=== PATIENT | male | born 1985 ===

== ENCOUNTER 2021-02-12 10:08 | Emergency (ER) | payer OTHER, SELFPAY ==
[2021-02-12 10:16] VITALS: BP 123/82; PULSE 77; RESP 18; TEMP 36.7; O2SAT 98; BMI 24.4
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
== END 2021-02-12 10:51 | disposition home or self-care (01) ==
PROVIDERS: Emergency Provider Emergency Medicine; PCP Internal Medicine
DX: S19.9XXA Unspecified injury of neck, initial encounter (principal); M54.2 Cervicalgia; M25.512 Pain in left shoulder; V43.52XA Car driver injured in collision with other type car in traffic accident, initial encounter; Y93.9 Activity, unspecified; Y92.410 Unspecified street and highway as the place of occurrence of the external cause; Y99.9 Unspecified external cause status; Z79.899 Other long term (current) drug therapy
CPT/HCPCS: 99283

== ENCOUNTER 2021-03-14 14:00 | Outpatient (REF) | payer OTHER, SELFPAY ==
[2021-03-15 10:01] LABS: Influenza A PCR NEGATIVE (Negative); Influenza B PCR NEGATIVE (Negative); Resp Syncy Virus RNA Qual PCR NEGATIVE (Negative); SARS COV2 PCR INHOUSE NEGATIVE (Negative)
== END 2021-03-14 14:01 | disposition home or self-care (01) ==
LOC: HO.10HDLNP 14:00
PROVIDERS: Visit Provider Internal Medicine
DX: R50.9 Fever, unspecified (principal); R19.7 Diarrhea, unspecified; R61 Generalized hyperhidrosis; Z20.822 Contact with and (suspected) exposure to COVID-19
CPT/HCPCS: 0241U; 36415

== ENCOUNTER 2021-03-15 09:06 | Outpatient (REF) | payer OTHER, SELFPAY | END 2021-03-15 09:07 | disposition home or self-care (01) | LOC: HO.10HDL 09:06 | PROVIDERS: Visit Provider Internal Medicine | DX: Z13.89 Encounter for screening for other disorder (principal) | CPT/HCPCS: 0241U; 36415 ==

== ENCOUNTER 2021-07-23 10:38 | Outpatient (REF) | payer OTHER, SELFPAY ==
[2021-07-23 11:34] LABS: Influenza A PCR NEGATIVE (Negative); Influenza B PCR NEGATIVE (Negative); Resp Syncy Virus RNA Qual PCR NEGATIVE (Negative); SARS COV2 PCR INHOUSE POSITIVE (Negative)
== END 2021-07-23 10:39 | disposition home or self-care (01) ==
LOC: HO.LNP 10:38
PROVIDERS: Visit Provider Internal Medicine
DX: Z20.822 Contact with and (suspected) exposure to COVID-19 (principal); R51.9 Headache, unspecified; R09.81 Nasal congestion
CPT/HCPCS: 0241U

== ENCOUNTER 2021-08-22 11:19 | Outpatient (REF) | payer OTHER, SELFPAY ==
[2021-08-22 12:07] LABS: Influenza A PCR NEGATIVE (Negative); Influenza B PCR NEGATIVE (Negative); Resp Syncy Virus RNA Qual PCR NEGATIVE (Negative); SARS COV2 PCR INHOUSE POSITIVE (Negative)
== END 2021-08-22 11:20 | disposition home or self-care (01) ==
LOC: HO.LNP 11:19
PROVIDERS: Visit Provider Internal Medicine
DX: Z20.822 Contact with and (suspected) exposure to COVID-19 (principal)
CPT/HCPCS: 0241U

== ENCOUNTER 2023-02-04 16:34 | Outpatient (REF) | payer OTHER, SELFPAY ==
[2023-02-04 16:49] LABS: MANUAL DIFF FLAG NO
[2023-02-04 17:32] LABS: Basophils Absolute Auto 0.1 X10*3/uL (0.0-0.2); Basophils Percent Auto 1.1 % (0-2); Eosinophils Absolute Auto 0.1 X10*3/uL (0.0-0.4); Eosinophils Percent Auto 1.2 % (0-4); Hematocrit 46.4 % (42.0-52.0); Imm Gran Abs Auto 0.06 X10*3/uL (0.00-0.03); Imm Gran Pct Auto 0.7 % (0.0-0.4); Lymphocytes Absolute Auto 2.8 X10*3/uL (1.2-4.9); Lymphocytes Percent Auto 33.5 % (20-40); Mean Corpuscular HGB Conc 34.5 g/dl (31.0-36.0); Mean Corpuscular Hemoglobin 31.5 pg (27.0-33.0); Mean Corpuscular Volume 91.3 fL (80.0-98.0); Monocytes Absolute Auto 0.6 X10*3/uL (0.1-1.2); Monocytes Percent Auto 6.8 % (2-11); Neutrophils Absolute Auto 4.8 x10*3/uL (2.0-8.3); Neutrophils Percent Auto 56.7 % (45-73); Platelet Count 294 X10*3/uL (160-400); Red Blood Count 5.08 X10*6/uL (4.60-5.80); White Blood Count 8.4 X10*3/uL (4.8-10.8)
[2023-02-04 17:41] LABS: Appearance Urine Turbid; Color Urine Yellow; Glucose Urine UA Negative (Negative); Leukocyte Esterase Urine Negative (Negative); Nitrite Urine Negative (Negative); Specific Gravity - Urine 1.025 (1.005-1.025); Urine Blood Negative (Negative); Urine Ketones Negative (Negative); Urine Protein Negative (Neg-Trace)
[2023-02-04 18:05] LABS: Alanine Aminotransferase 29 U/L (0-40); Albumin Level 4.4 g/dL (3.5-5.0); Alkaline Phosphatase 81 U/L (39-117); Anion Gap 13 (12-20); Aspartate Amino Transferase 23 U/L (5-37); Bilirubin Total 0.5 mg/dL (0.0-1.0); Blood Urea Nitrogen 13 mg/dL (9-16); C Reactive Protein 0.24 mg/dL (< or = 0.50); Calcium 9.4 mg/dL (8.4-10.2); Carbon Dioxide 28 mmol/L (22-29); Chloride 104 mmol/L (96-108); Estimated Glomerular Filt Rate > 60; Glucose Random 81 mg/dL (60-115); Lipase 36 U/L (8-78); Potassium 4.9 mmol/L (3.3-5.1); Sodium 140 mmol/L (135-145); Total Protein 7.5 g/dL (6.5-8.0)
[2023-02-04 18:21] LABS: Thyroid Stimulating Hormone 2.07 uIU/mL (0.32-4.0)
== END 2023-02-04 16:35 | disposition home or self-care (01) ==
LOC: HO.LAB 16:34
PROVIDERS: PCP Internal Medicine; Visit Provider Internal Medicine
DX: R10.9 Unspecified abdominal pain (principal); R63.5 Abnormal weight gain; E11.9 Type 2 diabetes mellitus without complications
CPT/HCPCS: 36415; 80053; 81003; 83690; 84443; 85025; 86140

== ENCOUNTER 2023-05-19 08:22 | Emergency (ER) | payer OTHER, SELFPAY ==
[2023-05-19 08:27] VITALS: BP 141/94; PULSE 75; RESP 16; TEMP 36.8; O2SAT 96; BMI 27.0
--- NOTE | 2023-05-19 08:58 | ED.BACK ---
HPI - Back Pain/Injury General Chief Complaint: Back Pain/Injury Stated Complaint: lower back pain Time Seen by Provider: 05/19/23 08:46 Source: patient, RN notes reviewed and old records reviewed Mode of arrival: ambulatory History of Present Illness HPI Narrative: 37-year-old male with no significant past medical history presenting to the ED complaining of bilateral low back pain x2 days s/p golfing. Patient reports heavy lifting/strenuous activities at work, and may have tweaked while playing golf, denies direct injury/trauma or fall, radiation down lower extremities, numbness, tingling, urinary incontinence/retention, hematuria/dysuria MD elicited complaint: back pain Related Data Previous Rx's Medication Instructions Recorded acetaminophen 500 mg tablet 500 mg PO Q6H PRN pain or fever 02/12/21 (Tylenol Extra Strength) #20 tabs cyclobenzaprine 5 mg tablet 5 mg PO Q8H PRN pain (scale score 02/12/21 7-10) 5 days #14 tabs lidocaine 5 % topical patch 1 patch topical DAILY PRN pain #30 02/12/21 (Lidoderm) ea naproxen 500 mg tablet 500 mg PO BID PRN pain 10 days #20 02/12/21 tabs acetaminophen 500 mg tablet 500 mg PO Q6H PRN fever or pain 05/19/23 (Tylenol Extra Strength) #14 tabs cyclobenzaprine 5 mg tablet 5 mg PO Q8H PRN pain (scale score 05/19/23 7-10) 5 days #14 tabs lidocaine 5 % topical patch 1 patch topical DAILY PRN pain #30 05/19/23 (Lidoderm) ea naproxen 500 mg tablet 500 mg PO BID PRN pain 10 days #20 05/19/23 tabs Allergies Allergy/AdvReac Type Severity Reaction Status Date / Time shrimp Allergy Unknown EAR PAIN, Verified 05/19/23 08:29 WATERY EYES, DIFFICULTY BREATHING, SWELLING Review of Systems Review of Systems: Constitutional: No Fever, No Chills ENT/Mouth: No Ear Pain, No sore throat, No Rhinorrhea, No Swallowing Difficulty Cardiovascular: No Chest Pain, No SOB Respiratory: No Cough Gastrointestinal: No Nausea, No Vomiting, No Diarrhea, No Constipation, No Abdominal pain Genitourinary: No Dysuria, No Urinary Frequency, No Hematuria, No Urinary Incontinence/retention, No Flank Pain Musculoskeletal: + joint pain, No Myalgias, No Joint Swelling Skin: No Skin Lesions, No rash Neuro: No Weakness, No Numbness, No Paresthesias Yes all other systems are reviewed and are negative Constitutional: Constitutional: Reports as per [facility] Past Medical History Attestation statement: The following information was validated with the patient. Source: old records reviewed Medical History No known health problems Physical Exam Vital Signs: Vital Signs: Last Vital Signs Temp 98.2 F 05/19/23 08:27 Pulse 75 05/19/23 08:27 Resp 16 05/19/23 08:27 BP 141/94 H 05/19/23 08:27 Pulse Ox 96 05/19/23 08:27 O2 Del Method Room Air 05/19/23 08:27 BMI result Body Mass Index 27.0 Const: General: cooperative, healthy appearing and no acute distress Orientation/consciousness: patient oriented x3 Limitations: no limitations HEENT: Head: Yes normal to inspection and Yes atraumatic Ears: hearing grossly normal bilaterally General nose exam: Normal external nose present Face and sinus: Yes normal facial exam Eyes: General: appearance normal, both eyes and all related structures EOM: EOMs intact bilaterally Neck: Neck: Yes normal visual inspection and Yes no meningeal signs Resp: Effort & Inspection: normal respiratory effort and no respiratory distress Cardio: Rate: regular rate GI: Inspection: Yes normal to inspection Palpation (GI): Soft to palpation, nontender, no guarding and not rigid : General: Yes no CVA tenderness Back/Spine/Pelvis: Other: No midline cervical/thoracic/lumbar spinous tenderness/step-off or deformity. + lower lumbar MSK spasming noted with bilateral paraspinal tenderness, no erythema/rash or ecchymosis. Back: no CVA tenderness Skin: Rashes: no rashes Wounds: no wounds Neuro: Other: Strength intact throughout. No saddle anesthesia. Sensation intact to light touch. Neurovascular intact distally General: patient oriented x3, gait normal, tone normal, moves all extremities, no meningeal signs and no focal motor deficits Gait exam (Neuro): Normal gait present Motor exam (neuro): 5/5 motor strength present throughout Extrem: General: Yes normal to inspection Medical Decision Making Medical Decision Making MDM Narrative: 37-year-old male with no significant past medical history presenting to the ED complaining of bilateral low back pain x2 days s/p golfing. On exam vital signs stable, NAD, nontoxic appearing, no midline spinous tenderness throughout or red flag symptoms, ambulating with steady, abdomen soft/nontender, no CVAT. Concern for MSK spasming/strain. Low suspicion for fracture, cauda equina/cord compression, epidural abscess, renal stone/pyelo or intra-abdominal pathology Plan: Pain control, PCP follow-up Results discussed with patient including worrisome signs and symptoms and strict return precautions, and when to return to the emergency department. They verbalized understanding and feel safe for discharge at this time. Differential Diagnosis Differential Diagnoses: The differential diagnosis associated with the presentation includes As above Admission/Observation Consideration of admission/observation: Escalation of care including admission/observation considered External Record Review External record reviewed: Inpatient record, Office record, Outpatient record, Prior outpatient labs, Prior outpatient radiology, Primary care record and Outside ED record Tests considered The following testing was considered but not selected: As above Discharge Plan Discharge Clinical Impression: Strain of lumbar region Patient Disposition: Home, Self-Care Instructions: Acute Low Back Pain (ED) Additional Instructions: Your pain is likely musculoskeletal Flexeril is a muscle relaxer, take at night as it makes you drowsy, do not drive, drink alcohol, or operate machinery while taking it Naproxen as an anti-inflammatory / pain medication, take with food Lidoderm patches are numbing patches, apply to painful area In addition take Tylenol at home If symptoms persist or worsen, pain becomes unbearable, you developed urinary retention or incontinence, or weakness return to the ED Prescriptions: New acetaminophen [Tylenol Extra Strength] 500 mg tablet 500 mg PO Q6H PRN (Reason: fever or pain) Qty: 14 0RF lidocaine [Lidoderm] 5 % adhesive patch,medicated 1 patch topical DAILY MDD remove after 12 hours PRN (Reason: pain) Qty: 30 0RF Rx Instructions: leave on most painful area for up to 12 hrs naproxen 500 mg tablet 500 mg PO BID PRN (Reason: pain) 10 Days Qty: 20 0RF cyclobenzaprine 5 mg tablet 5 mg PO Q8H PRN (Reason: pain (scale score 7-10)) 5 Days Qty: 14 0RF No Action acetaminophen [Tylenol Extra Strength] 500 mg tablet 500 mg PO Q6H PRN (Reason: pain or fever) Qty: 20 0RF lidocaine [Lidoderm] 5 % adhesive patch,medicated 1 patch topical DAILY MDD remove after 12 hours PRN (Reason: pain) Qty: 30 0RF Rx Instructions: leave on most painful area for up to 12 hrs naproxen 500 mg tablet 500 mg PO BID PRN (Reason: pain) 10 Days Qty: 20 0RF cyclobenzaprine 5 mg tablet 5 mg PO Q8H PRN (Reason: pain (scale score 7-10)) 5 Days Qty: 14 0RF Referrals: Tony López MD [Primary Care Provider] - Stand Alone Forms: Work/School Release
[2023-05-19] MEDS: Lidocaine 4 % Patch ADH..PATCH 1 PATCH TRANSDERMA (09:28)
[2023-05-19] MEDS: Ketorolac Tromethamine 30 MG/ML VIAL IM (09:29)
== END 2023-05-19 09:31 | disposition home or self-care (01) ==
PROVIDERS: Emergency Provider Emergency Medicine; PCP Internal Medicine
DX: M54.50 Low back pain, unspecified (principal); Z79.899 Other long term (current) drug therapy
CPT/HCPCS: 96372; 99284; J1885

== ENCOUNTER → 2024-05-30 10:48 | Outpatient (BNVA) | payer SELFPAY | PROVIDERS: PCP Internal Medicine; Visit Provider Physician Assistant Medical | DX: Z02.1 Encounter for pre-employment examination (principal) ==

== ENCOUNTER 2024-06-09 03:29 | Emergency (ER) | payer OTHER, SELFPAY ==
[2024-06-09 03:55] VITALS: BP 133/86; PULSE 89; RESP 18; TEMP 36.6; O2SAT 98; BMI 26.8
[2024-06-09] MEDS: Ibuprofen 600 MG TABLET PO (04:02)
--- NOTE | 2024-06-09 08:51 | ED.BACK ---
HPI - Back Pain/Injury General Chief Complaint: Extremity Problem Stated Complaint: lower back spasms Time Seen by Provider: 06/09/24 08:05 Source: patient Mode of arrival: ambulatory Limitations: no limitations History of Present Illness ED Provider: PIPO LOPEZ Narrative: 38 yo male with no sig PMH not on thinners no IVDA here with c/o lower back pain after heavy lifting at work hx of same in past. He denies numbness, weakness, saddle anesthesia. He tried motrin but went into spasms this AM and couldn't work. elicited complaint: back pain and back injury Pertinent past history: prior back pain Onset (ago): day(s) (yesterday) Timing: constant Severity: moderate Similar Symptoms Previously: Yes Quality: throbbing Location: lumbar spine Radiation: none Exacerbating factors: movement Relieving factors: none Context: while lifting Associated symptoms: denies other symptoms Treatments prior to arrival: NSAIDS Work related injury: Yes Related Data Previous Rx's ?Medication ?Instructions ?Recorded acetaminophen 500 mg tablet 500 mg PO Q6H PRN pain or fever 02/12/21 (Tylenol Extra Strength) #20 tabs cyclobenzaprine 5 mg tablet 5 mg PO Q8H PRN pain (scale score 02/12/21 7-10) 5 days #14 tabs lidocaine 5 % topical patch 1 patch topical DAILY PRN pain #30 02/12/21 (Lidoderm) ea naproxen 500 mg tablet 500 mg PO BID PRN pain 10 days #20 02/12/21 tabs acetaminophen 500 mg tablet 500 mg PO Q6H PRN fever or pain 05/19/23 (Tylenol Extra Strength) #14 tabs cyclobenzaprine 5 mg tablet 5 mg PO Q8H PRN pain (scale score 05/19/23 7-10) 5 days #14 tabs lidocaine 5 % topical patch 1 patch topical DAILY PRN pain #30 05/19/23 (Lidoderm) ea naproxen 500 mg tablet 500 mg PO BID PRN pain 10 days #20 05/19/23 tabs cyclobenzaprine 10 mg tablet 10 mg PO TID PRN muscle spasm #20 06/09/24 tabs lidocaine 5 % topical patch 1 patch topical DAILY #30 ea 06/09/24 Allergies Allergy/AdvReac Type Severity Reaction Status Date / Time shrimp Allergy Unknown EAR PAIN, Verified 06/09/24 03:58 WATERY EYES, DIFFICULTY BREATHING, SWELLING Review of Systems Review of Systems: Constitutional : No Weight loss, No Fever, No Chills, ENT/Mouth : No Hearing loss, No Ear Pain, No Nasal Congestion, No Sinus Pain, No Hoarseness, No sore throat, No Rhinorrhea, No Swallowing Difficulty Cardiovascular : No Chest Pain, No SOB Respiratory : No Cough, No Dyspnea Gastrointestinal : No Nausea, No Vomiting, No Diarrhea, No abdominal Pain, No Hematochezia, No Melena Genitourinary : No Dysuria, No Urinary Frequency, No Hematuria, No Urinary Incontinence, Musculoskeletal : positive back pain Skin : No Skin Lesions, No rash Neuro : No Weakness, No Numbness, No Paresthesias, no loss of bowel or bladder incontinence, no saddle anesthesia all other systems reviewed and are negative [facility] Past Medical History Attestation statement: The following information was validated with the patient. Source: old records reviewed Medical History No known health problems Social History Social History (Updated 06/09/24 @ 08:55 by Breann Anderson DO) Patient Tobacco Use Status: Never used Tobacco Physical Exam Vital Signs: Vital Signs: Last Vital Signs Temp 97.8 F 06/09/24 03:55 Pulse 89 06/09/24 03:55 Resp 18 06/09/24 03:55 BP 133/86 06/09/24 03:55 Pulse Ox 98 06/09/24 03:55 O2 Del Method Room Air 06/09/24 03:55 BMI result Body Mass Index 26.8 Appearance: Alert. Oriented X3. No acute distress. Eyes: Pupils equal, round and reactive to light. ENT: Pharynx normal. Neck: Normal inspection. Neck supple. CVS: Normal heart rate and rhythm. Pulses normal. Respiratory: No respiratory distress. Breath sounds normal. Abdomen: Soft and nontender. Back: ttp along lower lumbar bilateral paraspinal Skin: Skin warm and dry. Normal skin color. Normal skin turgor. Extremities: No lower extremity edema. No calf ttp Neuro: Oriented X 3. No motor deficit. No sensory deficit. L5 5/5 bilaterally SILT intact Medications Administered Discontinued Medications Generic Name Dose Route Start Last Admin Trade Name Freq PRN Reason Stop Dose Admin Ibuprofen 600 mg 06/09/24 03:59 06/09/24 04:02 Ibuprofen 600 Mg Tablet PO 06/09/24 04:00 600 mg ONCE ONE Administration Medical Decision Making Medical Decision Making MDM Narrative: 38 yo male with no sig PMH here with low back pain not on thinners no IVDA - work related due to lifting no red flags normal neuro exam at this time will need NSAIDs and muscle relaxers. Not toxic appearing Differential Diagnosis Differential Diagnoses: The differential diagnosis associated with the presentation includes strain, spasm External Record Review External record reviewed: Inpatient record Prescription Management I considered prescription management with: Pain Medication and Other Discharge Plan Discharge Clinical Impression: Muscle spasm of back Patient Disposition: Home, Self-Care Instructions: Muscle Spasm (ED), Back Pain (ED) Additional Instructions: return for worsening symptoms or concerns, weakness, loss of control of bowel or bladder alternate tylenol and motrin for pain no lifting more than 10lbs until thursday no motrin for 8 hours Prescriptions: New cyclobenzaprine 10 mg tablet 10 mg PO TID PRN (Reason: muscle spasm) Qty: 20 0RF lidocaine 5 % adhesive patch,medicated 1 patch topical DAILY Qty: 30 0RF Rx Instructions: leave on most painful area for up to 12 hrs No Action acetaminophen [Tylenol Extra Strength] 500 mg tablet 500 mg PO Q6H PRN (Reason: pain or fever) Qty: 20 0RF lidocaine [Lidoderm] 5 % adhesive patch,medicated 1 patch topical DAILY MDD remove after 12 hours PRN (Reason: pain) Qty: 30 0RF Rx Instructions: leave on most painful area for up to 12 hrs naproxen 500 mg tablet 500 mg PO BID PRN (Reason: pain) 10 Days Qty: 20 0RF cyclobenzaprine 5 mg tablet 5 mg PO Q8H PRN (Reason: pain (scale score 7-10)) 5 Days Qty: 14 0RF acetaminophen [Tylenol Extra Strength] 500 mg tablet 500 mg PO Q6H PRN (Reason: fever or pain) Qty: 14 0RF lidocaine [Lidoderm] 5 % adhesive patch,medicated 1 patch topical DAILY MDD remove after 12 hours PRN (Reason: pain) Qty: 30 0RF Rx Instructions: leave on most painful area for up to 12 hrs naproxen 500 mg tablet 500 mg PO BID PRN (Reason: pain) 10 Days Qty: 20 0RF cyclobenzaprine 5 mg tablet 5 mg PO Q8H PRN (Reason: pain (scale score 7-10)) 5 Days Qty: 14 0RF Stand Alone Forms: Work/School Release Print Language: Kiswahili
[2024-06-09] MEDS: Ketorolac Tromethamine 30 MG/ML VIAL IM (08:58)
--- NOTE | 2024-06-09 08:59 | PC.NURSE ---
pt medicated for 07/09 pain
[2024-06-09 09:10] VITALS: BP 128/88; PULSE 82; RESP 18; TEMP 36.7; O2SAT 98
== END 2024-06-09 09:11 | disposition home or self-care (01) ==
PROVIDERS: Emergency Provider Emergency Medicine; PCP Internal Medicine
DX: M62.830 Muscle spasm of back (principal); M54.50 Low back pain, unspecified
CPT/HCPCS: 96372; 99283; 99284; J1885

== ENCOUNTER 2024-07-26 13:58 | Outpatient (AMB) | payer MEDICAID, SELFPAY ==
--- NOTE | 2024-07-26 14:14 | AM.OFFWIN_ITS ---
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 Their symptoms started Thursday. Patient Tobacco Use Status: Never used Tobacco Allergies shrimp Allergy (Unknown, Verified 07/26/24 14:21) EAR PAIN, WATERY EYES, DIFFICULTY BREATHING, SWELLING Do you need a note to return to daycare/school/sports/work: Yes HPI HPI Comments History of Present Illness Details Patient is a 38-year-old male with a past medical history of asthma complaining of stuffy head a runny nose and diarrhea for 1 day. He denies any bloody or black stools or fevers or cough or sore throat or headache or sinus pain. He states his whole family tested positive for COVID. He states he does have an inhaler in his car for his asthma but he has not felt short of breath at all. [facility] Medical History No known health problems Social History (Updated 06/09/24 @ 08:55 by Breann Anderson DO) Patient Tobacco Use Status: Never used Tobacco Review of Systems Const All systems reviewed & are unremarkable except as noted in HPI and below Physical Exam Vital Signs: Last Vital Signs Temp 98.4 F 07/26/24 14:20 Pulse 80 07/26/24 14:20 BP 118/80 07/26/24 14:20 Pulse Ox 98 07/26/24 14:20 Oxygen Delivery Method Room Air 07/26/24 14:20 BMI result Body Mass Index 26.9 Const General: cooperative, healthy appearing, comfortable and no acute distress Orientation/consciousness: patient oriented x3 Limitations: no limitations HEENT Head: Yes normal to inspection Ears: hearing grossly normal bilaterally, external ears normal and TM's normal bilaterally General nose exam: Normal external nose present, Normal nares present and No nasal discharge present Face and sinus: Yes normal facial exam and Yes sinuses nontender Mouth: Normal oral and palatal mucosa present and moist mucous membranes Throat: Yes tonsils normal, Yes uvula midline and Yes posterior oropharynx abnormal (Erythema) Eyes General: appearance normal, both eyes and all related structures Neck Neck: Yes normal visual inspection Resp Effort & Inspection: normal respiratory effort, able to speak in complete sentences, no respiratory distress, not tachypneic, no tripod positioning and no use of accessory muscles Skin General skin exam: no rashes or lesions noted Neuro General: patient oriented x3 Extrem General: Yes normal to inspection and Yes no clubbing, cyanosis or edema Assessment & Plan Assessment & Plan (1) URI (upper respiratory infection): Code(s): J06.9 - Acute upper respiratory infection, unspecified Qualifiers: URI type: unspecified URI Qualified Code(s): J06.9 - Acute upper respiratory infection, unspecified Plan: Sent flu COVID and RSV testing, recommended he stay out of work until he is fever free and asymptomatic for 24 hours. Wrote work note. Recommended he treat himself with [id number] medications. (2) Diarrhea: Code(s): R19.7 - Diarrhea, unspecified Qualifiers: Diarrhea type: unspecified type Qualified Code(s): R19.7 - Diarrhea, unspecified Plan: Recommended staying well hydrated; likely secondary to COVID. Plan See above Orders: Orders SARS-CoV2/FLU/RSV Today J06.9 - Acute upper respiratory infection, unspecified Coding Level of Care Code New Pt Level 3 (28863) Diagnoses Upper respiratory tract infection, unspecified type J06.9 URI type: unspecified URI Diarrhea, unspecified type R19.7 Diarrhea type: unspecified type
[2024-07-26 14:20] VITALS: BP 118/80; PULSE 80; TEMP 36.9; O2SAT 98; BMI 26.9
== END 2024-07-26 14:31 | disposition home or self-care (01) ==
PROVIDERS: PCP Internal Medicine; Visit Provider Physician Assistant
DX: J06.9 Acute upper respiratory infection, unspecified (principal); R19.7 Diarrhea, unspecified
CPT/HCPCS: 99203

== ENCOUNTER 2024-07-26 14:25 | Outpatient (REF) | payer OTHER, SELFPAY ==
[2024-07-26 17:54] LABS: Influenza A PCR NEGATIVE (Negative); Influenza B PCR NEGATIVE (Negative); Resp Syncy Virus RNA Qual PCR NEGATIVE (Negative); SARS COV2 PCR INHOUSE POSITIVE (Negative)
== END 2024-07-26 14:26 | disposition home or self-care (01) ==
LOC: HO.LAB 14:25
PROVIDERS: Visit Provider Physician Assistant
DX: J06.9 Acute upper respiratory infection, unspecified (principal)
CPT/HCPCS: 0241U